=== PATIENT | male | born 1990 | race Caucasian/White ===

== ENCOUNTER 2018-08-26 11:17 | Emergency (ER) | payer MEDICAID ==
[~2018-08-26] VITALS: Ht 167.6 cm; Wt 85.3 kg
[2018-08-26 11:33] VITALS: BP 108/44
--- NOTE | 2018-08-26 13:17 | NUR ---
Patient being evaluated by physician at bedside.
--- NOTE | 2018-08-26 13:17 | NUR ---
PT AMB TO ER BED 11
--- NOTE | 2018-08-26 13:20 | NUR ---
BIB SELF WITH C/O CHEST DISCOMFORT FROM USING COCAINE APPROXIMATELY 5 WEEKS AGO, PT STATES NUMBING FEELING THAT RADIATES FROM THE CHEST, NECK AND HEAD. AAO X4, FACIAL SYMMETRY, CLEAR SPEECH. EQUAL BILATERAL STRENGTH TO UPPER AND LOWER EXTREMITIES. NO SOB NOTED. PT PLACED ON FULL MONITOR. HOB UP, BED RAILS X 1 UP. ON LOW BED POSITION, LOCKED, WILL CONTINUE TO MONITOR.
[2018-08-26 13:53] LABS: BASOPHILS # (AUTO) 0.1 K/uL (0.00-0.22); BASOPHILS % (AUTO) 1.1 % (0.0-2.0); EOSINOPHILS % (AUTO) 0.6 % (0.0-4.0); HEMATOCRIT 48.3 % (36-52); HEMOGLOBIN 16.6 g/dL (12.0-18.0); LYMPHOCYTES # (AUTO) 2.1 K/uL (2.0-11.5); LYMPHOCYTES % (AUTO) 33.4 % (20.5-51.1); MEAN CORPUSCULAR HEMOGLOBIN 31 pg (27-31); MEAN CORPUSCULAR HGB CONC 34 g/dL (33-37); MEAN CORPUSCULAR VOLUME 89.6 fL (80-94); MONOCYTES # (AUTO) 0.5 K/uL (0.8-1.0); MONOCYTES % (AUTO) 7.8 % (1.7-9.3); NEUTROPHILS # (AUTO) 3.7 K/uL (1.8-7.7); NEUTROPHILS % (AUTO) 57.1 % (42.2-75.2); PLATELET COUNT (AUTO) 312 K/uL (140-450); RED BLOOD CELL COUNT(AUTO) 5.39 MIL/uL (4.20-6.10); RED CELL DISTRIBUTION WIDTH 13.3 % (11.6-13.7); WHITE BLOOD COUNT (AUTO) 6.4 K/uL (4.8-10.8)
[2018-08-26 14:26] LABS: ANION GAP 14.3 (8-16); CARBON DIOXIDE 24.1 mmol/L (21-32); POTASSIUM 3.4 mmol/L (3.5-5.1)
[2018-08-26 14:30] LABS: APPEARANCE,URINE SL CLOUDY (CLEAR); BILIRUBIN,URINE NEGATIVE (NEGATIVE); BLOOD, URINE NEGATIVE (NEGATIVE); COLOR,URINE ORANGE (YELLOW); LEUKOCYTE ESTERASE ,URINE NEGATIVE (NEGATIVE); NITRITE, URINE NEGATIVE (NEGATIVE); PH,URINE 7.5 (5.0-9.0); UGLUCOSE NEGATIVE (NEGATIVE)
[2018-08-26 14:32] LABS: PROTHROMBIN TIME 9.5 secs (10.8-13.4)
[2018-08-26 14:33] LABS: ALBUMIN 4.2 g/dL (3.4-5.0); TOTAL BILIRUBIN 0.6 mg/dL (0.0-1.0)
[2018-08-26 14:38] LABS: BARBITURATE, URINE NEG. ng/ml (NEG <=200); BENZODIAZEPINE, URINE NEG. ng/mL (NEG <=200); CANNABINOID, URINE NEG. ng/mL (NEG <=50); COCAINE, URINE NEG. ng/mL (NEG <=300); OPIATE, URINE NEG. ng/mL (NEG <=2000); PHENCYCLIDINE SCREEN,URINE NEG. ng/mL (NEG <=25)
[2018-08-26 14:50] LABS: D-DIMER < 100 ng/ml (0-400)
[2018-08-26 14:55] LABS: MAGNESIUM 1.9 mg/dL (1.8-2.4)
--- NOTE | 2018-08-26 15:30 | NUR ---
PATIENT RESTING AT THIS TIME; NO SIGNS OF DISTRESS.
[2018-08-26 16:15] VITALS: BP 119/85
--- NOTE | 2018-08-26 16:15 | NUR ---
Patient discharged with v/s stable. Written and verbal after care instructions given and explained. Patient alert, oriented and verbalized understanding of instructions. Ambulatory with steady gait. All questions addressed prior to discharge. ID band removed. Patient advised to follow up with PMD. Rx of VISTARIL 25MG given. Patient educated on indication of medication including possible reaction and side effects. Opportunity to ask questions provided and answered.
== END 2018-08-26 16:15 | disposition home or self-care (01) ==
LOC: MED 11:17
DX: F41.0 Panic disorder [episodic paroxysmal anxiety] (principal); R20.2 Paresthesia of skin; F19.11 Other psychoactive substance abuse, in remission
CPT/HCPCS: 36415; 71045; 80053; 80305; 81003; 83735; 83880; 84484; 85025; 85379; 85610; 85730; 93005; 99284; G0482; Q0092